=== PATIENT | male | born 1965 | race Caucasian/White ===

== ENCOUNTER 2022-03-22 17:43 | Inpatient (IN) | payer OTHER ==
[~2022-03-22] VITALS: Ht 177.8 cm; Wt 132.1 kg
[2022-03-22 17:51] VITALS: BP 179/90
[2022-03-22 18:32] LABS: BASO # 0.1 10*3/uL (0.0-0.1); EOS # 0.1 10*3/uL (0.0-0.4); EOS % 2.7 % (1.0-4.0); HEMATOCRIT 39.9 % (42.0-52.0); LYMPH # 1.3 10*3/uL (1.3-4.4); LYMPH % 26.7 % (27.0-41.0); MEAN CELL VOLUME 89.7 fl (80.0-94.0); MEAN CORPUSCULAR HGB 30.8 pg (27.0-31.0); MEAN CORPUSCULAR HGB CONC 34.3 g/dl (33.0-37.0); MEAN PLATELET VOLUME 9.9 fl (9.6-12.3); MONO # 0.4 10*3/uL (0.1-1.0); MONO % 8.4 % (3.0-9.0); NEUT # 2.9 10*3/uL (2.3-7.9); PLATELET COUNT AUTOMATED 194 10*3/uL (130-400); RED BLOOD COUNT 4.45 10*6/uL (4.50-5.90); RED CELL DISTRI WIDTH 12.5 % (0-14.5); WHITE BLOOD COUNT 4.8 10*3/uL (4.8-10.8)
[2022-03-22 18:57] LABS: ALKALINE PHOSPHATASE 96 U/L (45-117); BUN 17 mg/dl (7-24); CHLORIDE 106 mmol/L (98-107); POTASSIUM 4.1 mmol/L (3.5-5.1); SGOT/AST 25 IU/L (3-35); SGPT/ALT 73 U/L (12-78); SODIUM 138 mmol/L (136-145); TOTAL PROTEIN 7.6 gm/dL (6.4-8.2)
[2022-03-22 19:03] LABS: BILIRUBIN Negative (Negative); BLOOD Negative (Negative); CLARITY Clear (Clear); COLOR Yellow (Yellow); GLUCOSE Negative (Negative); KETONE Negative (Negative); LEUKO ESTERASE Negative (Negative); NITRITE Negative (Negative); SPECIFIC GRAVITY 1.015 (1.001-1.030); UROBILINOGEN 0.2 E.U./dl (0.0-1.0)
[2022-03-22 19:23] LABS: BACTERIA TRACE; EPITHELIAL CELLS 0-2
[2022-03-22 19:54] VITALS: BP 153/76
[2022-03-22 20:45] LABS: URINE AMPHETAMINES < 1000 (1000ng/ml); URINE BARBITURATES < 200 (200ng/ml); URINE BENZODIAZEPINES < 200 (200ng/ml); URINE CANNABINOIDS (THC) < 50 (50ng/ml); URINE COCAINE < 300 (300ng/ml); URINE METHADONE < 300 (300ng/ml); URINE OPIATES < 300 (300ng/ml)
[2022-03-22 20:50] LABS: URINE PHENCYCLIDINE < 25 (25ng/ml)
[2022-03-22 21:11] VITALS: BP 163/92
[2022-03-22 22:30] VITALS: BP 156/90
[2022-03-23 04:04] LABS: BASO % 0.3 % (0.0-1.0); EOS % 0.2 % (1.0-4.0); HEMATOCRIT 40.4 % (42.0-52.0); LYMPH # 0.5 10*3/uL (1.3-4.4); LYMPH % 8.2 % (27.0-41.0); MEAN CELL VOLUME 89.2 fl (80.0-94.0); MEAN CORPUSCULAR HGB 30.5 pg (27.0-31.0); MEAN CORPUSCULAR HGB CONC 34.2 g/dl (33.0-37.0); MEAN PLATELET VOLUME 10.2 fl (9.6-12.3); MONO # 0.1 10*3/uL (0.1-1.0); MONO % 1.5 % (3.0-9.0); NEUT # 5.8 10*3/uL (2.3-7.9); NEUT % 89.5 % (47.0-73.0); PLATELET COUNT AUTOMATED 190 10*3/uL (130-400); RED BLOOD COUNT 4.53 10*6/uL (4.50-5.90); RED CELL DISTRI WIDTH 12.5 % (0-14.5); WHITE BLOOD COUNT 6.5 10*3/uL (4.8-10.8)
[2022-03-23 04:24] LABS: ALKALINE PHOSPHATASE 95 U/L (45-117); BUN 17 mg/dl (7-24); CHLORIDE 106 mmol/L (98-107); CHOLESTEROL 214 mg/dL (<200); CREATININE 1.03 mg/dL (0.70-1.30); LDL CHOLESTEROL 153 mg/dL (9-159); POTASSIUM 4.2 mmol/L (3.5-5.1); SGOT/AST 22 IU/L (3-35); SGPT/ALT 68 U/L (12-78); SODIUM 137 mmol/L (136-145); TOTAL PROTEIN 7.4 gm/dL (6.4-8.2); TRIGLYCERIDES 102 mg/dl (<150)
[2022-03-23 04:29] LABS: FREE T4 0.88 ng/dl (0.76-1.46)
[2022-03-23 08:00] VITALS: BP 157/87
[2022-03-23] MEDS ORDERED: PREDNISONE20 M1 PO (11:40)
[2022-03-23] MEDS ORDERED: Meclizine25 MG PO (11:40)
[2022-03-23] MEDS ORDERED: LISINOPRIL20 MG PO (11:40)
[2022-03-23 12:00] VITALS: BP 148/90
== END 2022-03-23 16:00 | disposition home or self-care (01) | DRG 305 ==
LOC: ED 17:43 → 4E 20:27 → EDHOLD 20:27 → 4E 21:17
PROVIDERS: Family Medicine; Nurse Practitioner Family; ADMIT Internal Medicine; ATTEND Internal Medicine
DX: I16.1 Hypertensive emergency (principal); R29.818 Other symptoms and signs involving the nervous system; R51.9 Headache, unspecified; D64.9 Anemia, unspecified; Z20.822 Contact with and (suspected) exposure to COVID-19; I10 Essential (primary) hypertension; R73.9 Hyperglycemia, unspecified; E83.39 Other disorders of phosphorus metabolism; Z78.9 Other specified health status; Z82.49 Family history of ischemic heart disease and other diseases of the circulatory system